=== PATIENT | male | born 1955 | race African-American/Black ===

== ENCOUNTER 2019-06-14 14:37 | Observation (INO) ==
[2019-06-14] MEDS ORDERED: DIPH/TET/ACEL PERT BOOSTER VACCINE 0.5 ML VIAL IM ONE (15:10)
[2019-06-14] MEDS ORDERED: ACETAMINOPHEN 325 MG TABLET PO PRN (15:59)
[2019-06-14] MEDS ORDERED: ONDANSETRON 4 MG/2 ML VIAL IV PRN (15:59)
[2019-06-15 07:35] VITALS: BP 145/59
[2019-06-15 08:07] LABS: Basophils % 0.4 % (0.0-0.8); Hematocrit 35.8 VOL% (42.0-52.0); Immature Granulocytes % 0.6 %; Immature Granulocytes Absolute 0.05 #; Lymphocytes # 0.8 10*3/uL (1.4-4.0); Lymphocytes % 8.9 % (21.2-54.2); Mean Corpuscular HGB Conc 33.5 GM/DL (32-36); Mean Corpuscular Volume 91.1 FL (87-102); Mean Platelet Volume 9.6 FL (9.6-12.0); Monocytes % 11.3 % (1.7-12.7); Neutrophils % 78.8 % (38.7-73.9); Platelet Count 401 T/CUMM (130-400); Red Blood Count 3.93 MC/CUMM (3.8-5.5); Red Cell Distribution Width 13.4 % (9.3-17.3)
[2019-06-15 08:31] LABS: Calcium 8.7 MG/DL (8.5-10.1); Osmolality,Calculated 267.4 MOS/KG (273-304)
== END 2019-06-15 10:00 ==
LOC: EDUNIT# → EDBD → N.ED 14:37 → N.EDINP 14:37 → N.3E 16:50
PROVIDERS: ADMIT Surgery; ATTEND Surgery

== ENCOUNTER 2020-04-11 02:28 | Observation (INO) ==
[2020-04-11] MEDS ORDERED: ASPIRIN 325 MG TABLET PO STA (03:13)
[2020-04-11] MEDS ORDERED: ONDANSETRON 4 MG/2 ML VIAL IV STA (03:13)
[2020-04-11 03:33] LABS: Basophils # 0.1 10*3/uL (0.0-0.2); Basophils % 1.7 % (0.0-0.8); Eosinophils # 0.2 10*3/uL (0.0-0.87); Eosinophils % 3.5 % (0.00-10.9); Hemoglobin 12.7 GM/DL (14.0-18.0); Immature Granulocytes % 0.2 %; Immature Granulocytes Absolute 0.01 #; Lymphocytes # 1.4 10*3/uL (1.4-4.0); Lymphocytes % 30.7 % (21.2-54.2); Mean Corpuscular HGB Conc 33.4 GM/DL (32-36); Mean Corpuscular Volume 91.6 FL (87-102); Mean Platelet Volume 9.2 FL (9.6-12.0); Monocytes % 13.9 % (1.7-12.7); Platelet Count 508 T/CUMM (130-400); Red Blood Count 4.15 MC/CUMM (3.8-5.5); Red Cell Distribution Width 12.9 % (9.3-17.3); White Blood Count 4.6 T/CUMM (4-12)
[2020-04-11 03:49] LABS: INR 1.1
[2020-04-11 03:54] LABS: Albumin 3.6 G/DL (3.4-5.0); Bilirubin,Total 0.6 MG/DL (0.2-1.0); Calcium 8.6 MG/DL (8.5-10.1); Osmolality,Calculated 275.7 MOS/KG (273-304); Potassium 3.9 MMOL/L (3.5-5.1); Total Protein 7.8 G/DL (6.4-8.3)
[2020-04-11 04:14] LABS: Bilirubin,Urine Negative (Negative); Blood, Urine Small mg/dL (Negative); Glucose,Urine (UA) Negative (Negative); Ketones,Urine Negative (Negative); Mucus,Urine Occasional /LPF (Occasional); Nitrite,Urine Negative (Negative); Protein,Urine 30 MG/DL; RBC,Urine 7 /HPF (0-4); Squamous Epithelial Cell,Urine Occasional /HPF (0-10); Urine Appearance CLEAR (Clear); Urine Color Yellow (Yellow); Urine Specific Gravity 1.015 (1.001-1.035); Urine Urobilinogen < 2.0 EU/DL (0.2-1.0); WBC,Urine 1 /HPF (0-6)
[2020-04-11] MEDS ORDERED: BISACODYL 5 MG TABLET PO PRN (05:49)
[2020-04-11] MEDS ORDERED: GLUCAGON 1 MG VIAL IM PRN (05:49)
[2020-04-11] MEDS ORDERED: DEXTROSE 50% 25 GM/50 ML VIAL IV PRN (05:49)
[2020-04-11] MEDS ORDERED: ALUMINUM/MAGNES/SIMETH MAX STR 30 ML UDCUP PO PRN (05:49)
[2020-04-11] MEDS ORDERED: ACETAMINOPHEN 325 MG TABLET PO PRN (05:49)
[2020-04-11] MEDS ORDERED: SIMETHICONE CHEW 125 MG TABLET PO PRN (05:49)
[2020-04-11] MEDS ORDERED: MORPHINE 4 MG/1 ML VIAL IV PRN (05:49)
[2020-04-11] MEDS ORDERED: ONDANSETRON 4 MG/2 ML VIAL IV PRN (05:49)
[2020-04-11] MEDS ORDERED: ALBUTEROL/IPRATROPIUM 3 ML NEB RESP TX PRN (05:49)
[2020-04-11] MEDS ORDERED: NITROGLYCERIN SL 0.4 MG TABLET SL PRN (05:52)
[2020-04-11] MEDS ORDERED: carvediloL 3.125 MG TABLET PO SCH (08:00)
[2020-04-11] MEDS ORDERED: ENOXAPARIN 40 MG/0.4 ML SYRINGE SUBCUT SCH (09:00)
[2020-04-11 09:54] LABS: Troponin I < 0.015 NG/ML (0.00-0.045)
[2020-04-11] MEDS: amLODIPine 10 MG TABLET PO SCH (10:36)
[2020-04-11] MEDS: PANTOPRAZOLE 40 MG TABLET PO SCH (10:36)
[2020-04-11] MEDS: LEVOTHYROXINE 88 MCG TABLET PO SCH (10:36)
[2020-04-11] MEDS: ASPIRIN CHEW 81 MG TABLET PO SCH (10:37)
[2020-04-11 10:40] LABS: Troponin I < 0.015 NG/ML (0.00-0.045)
[2020-04-11] MEDS ORDERED: ROSUVASTATIN 20 MG TABLET PO SCH (21:00)
[2020-04-12 07:08] LABS: Basophils # 0.1 10*3/uL (0.0-0.2); Basophils % 1.6 % (0.0-0.8); Eosinophils # 0.2 10*3/uL (0.0-0.87); Eosinophils % 2.9 % (0.00-10.9); Hematocrit 36.8 VOL% (42.0-52.0); Hemoglobin 12.3 GM/DL (14.0-18.0); Immature Granulocytes % 0.2 %; Immature Granulocytes Absolute 0.01 #; Lymphocytes # 1.4 10*3/uL (1.4-4.0); Lymphocytes % 27.8 % (21.2-54.2); Mean Corpuscular HGB Conc 33.4 GM/DL (32-36); Mean Corpuscular Volume 91.3 FL (87-102); Mean Platelet Volume 9.4 FL (9.6-12.0); Monocytes % 12.2 % (1.7-12.7); Neutrophils % 55.3 % (38.7-73.9); Platelet Count 504 T/CUMM (130-400); Red Blood Count 4.03 MC/CUMM (3.8-5.5); Red Cell Distribution Width 12.9 % (9.3-17.3); White Blood Count 5.2 T/CUMM (4-12)
[2020-04-12 07:29] LABS: Calcium 8.4 MG/DL (8.5-10.1); Osmolality,Calculated 281.3 MOS/KG (273-304); Potassium 3.8 MMOL/L (3.5-5.1)
[2020-04-12] MEDS: ASPIRIN CHEW 81 MG TABLET PO SCH (09:01)
[2020-04-12] MEDS: PANTOPRAZOLE 40 MG TABLET PO SCH (09:01)
[2020-04-12] MEDS: amLODIPine 10 MG TABLET PO SCH (09:02)
[2020-04-12] MEDS: LEVOTHYROXINE 88 MCG TABLET PO SCH (09:02)
[2020-04-12 10:27] VITALS: BP 126/64
== END 2020-04-12 11:42 | disposition home health service (06) ==
LOC: SUATTDRO → EDUNIT# → EDBD → N.EDINP 02:28 → N.ED 02:28 → N.TELEN 07:35
PROVIDERS: ADMIT Emergency Medicine; ATTEND Emergency Medicine

== ENCOUNTER 2020-07-04 05:45 | Observation (INO) ==
[2020-07-04 06:25] LABS: Basophils # 0.1 10*3/uL (0.0-0.2); Basophils % 1.9 % (0.0-0.8); Eosinophils # 0.2 10*3/uL (0.0-0.87); Eosinophils % 2.8 % (0.00-10.9); Hematocrit 39.3 VOL% (42.0-52.0); Hemoglobin 13.2 GM/DL (14.0-18.0); Immature Granulocytes % 0.2 %; Immature Granulocytes Absolute 0.01 #; Lymphocytes # 2.6 10*3/uL (1.4-4.0); Lymphocytes % 41.3 % (21.2-54.2); Mean Corpuscular HGB Conc 33.6 GM/DL (32-36); Mean Corpuscular Volume 92.3 FL (87-102); Mean Platelet Volume 10.1 FL (9.6-12.0); Monocytes % 13.1 % (1.7-12.7); Neutrophils % 40.7 % (38.7-73.9); Platelet Count 308 T/CUMM (130-400); Red Blood Count 4.26 MC/CUMM (3.8-5.5); Red Cell Distribution Width 13.7 % (9.3-17.3); White Blood Count 6.2 T/CUMM (4-12)
[2020-07-04 07:02] LABS: Albumin 3.9 G/DL (3.4-5.0); Bilirubin,Total 0.5 MG/DL (0.2-1.0); Calcium 8.5 MG/DL (8.5-10.1); Osmolality,Calculated 283.5 MOS/KG (273-304); Potassium 5.8 MMOL/L (3.5-5.1); Total Protein 7.4 G/DL (6.4-8.2)
[2020-07-04] MEDS ORDERED: ALBUTEROL 2.5 MG/3 ML NEB RESP TX STA (09:06)
[2020-07-04] MEDS ORDERED: SODIUM CHLORIDE 0.9% 1,000 ML IV STA (09:40)
[2020-07-04] MEDS ORDERED: cefTRIAXone 1,000 MG in SODIUM CHLORIDE 0.9% 100 ML IV STA (09:41)
[2020-07-04] MEDS ORDERED: GLUCAGON 1 MG VIAL IM PRN (10:24)
[2020-07-04] MEDS ORDERED: ACETAMINOPHEN 325 MG TABLET PO PRN (10:24)
[2020-07-04] MEDS ORDERED: hydrALAZINE 20 MG/1 ML VIAL IV PRN (10:24)
[2020-07-04] MEDS ORDERED: ONDANSETRON 4 MG/2 ML VIAL IV PRN (10:24)
[2020-07-04] MEDS ORDERED: DOCUSATE SODIUM 100 MG CAPSULE PO PRN (10:24)
[2020-07-04] MEDS ORDERED: ALBUTEROL/IPRATROPIUM 3 ML NEB RESP TX PRN (10:24)
[2020-07-04] MEDS ORDERED: DEXTROSE 50% 25 GM/50 ML VIAL IV PRN (10:24)
[2020-07-04] MEDS: ENOXAPARIN 40 MG/0.4 ML SYRINGE SUBCUT SCH (14:01)
[2020-07-04] MEDS: SODIUM CHLORIDE 0.9% 1,000 ML IV SCH ×2 (14:22→22:43)
[2020-07-04 23:28] LABS: Bacteria,Urine Occasional /HPF (Few); Bilirubin,Urine Negative (Negative); Blood, Urine Negative (Negative); Glucose,Urine (UA) Negative (Negative); Hyaline Casts,Urine 11 /LPF (0-3); Ketones,Urine Negative (Negative); Mucus,Urine Occasional /LPF (Occasional); Nitrite,Urine Negative (Negative); Protein,Urine Negative; RBC,Urine 1 /HPF (0-4); Sperm,Urine Occasional /HPF (Negative); Urine Appearance CLEAR (Clear); Urine Color Yellow (Yellow); Urine Specific Gravity 1.015 (1.001-1.035); Urine Urobilinogen < 2.0 EU/DL (0.2-1.0)
[2020-07-05] MEDS: SODIUM CHLORIDE 0.9% 1,000 ML IV SCH ×2 (02:58→06:15)
[2020-07-05 06:11] LABS: Basophils # 0.1 10*3/uL (0.0-0.2); Basophils % 2.1 % (0.0-0.8); Eosinophils # 0.2 10*3/uL (0.0-0.87); Eosinophils % 3.2 % (0.00-10.9); Hematocrit 35.5 VOL% (42.0-52.0); Hemoglobin 11.6 GM/DL (14.0-18.0); Immature Granulocytes % 0.2 %; Immature Granulocytes Absolute 0.01 #; Lymphocytes # 1.5 10*3/uL (1.4-4.0); Lymphocytes % 31.7 % (21.2-54.2); Mean Corpuscular HGB Conc 32.7 GM/DL (32-36); Mean Corpuscular Volume 92.4 FL (87-102); Mean Platelet Volume 9.4 FL (9.6-12.0); Monocytes % 15.3 % (1.7-12.7); Neutrophils % 47.5 % (38.7-73.9); Platelet Count 474 T/CUMM (130-400); Red Blood Count 3.84 MC/CUMM (3.8-5.5); Red Cell Distribution Width 13.7 % (9.3-17.3); White Blood Count 4.8 T/CUMM (4-12)
[2020-07-05 06:51] LABS: Osmolality,Calculated 284.4 MOS/KG (273-304); Potassium 4.4 MMOL/L (3.5-5.1); Risk Ratio 2.69; Thyroid Stimulating Hormone 17.8 uIU/ml (0.358-3.74); VLDL CHOLESTEROL 19.8 MG/DL
[2020-07-05] MEDS: PANTOPRAZOLE 40 MG TABLET PO SCH (09:15)
[2020-07-05] MEDS: ENOXAPARIN 40 MG/0.4 ML SYRINGE SUBCUT SCH (09:50)
[2020-07-05] MEDS: SODIUM BICARB INJ 150 MEQ in SODIUM CHLORIDE 0.45% 1,000 ML IV SCH (14:56)
[2020-07-06] MEDS: SODIUM BICARB INJ 150 MEQ in SODIUM CHLORIDE 0.45% 1,000 ML IV SCH (00:22)
[2020-07-06 05:50] LABS: Basophils # 0.1 10*3/uL (0.0-0.2); Eosinophils # 0.3 10*3/uL (0.0-0.87); Eosinophils % 6.8 % (0.00-10.9); Hemoglobin 10.5 GM/DL (14.0-18.0); Immature Granulocytes % 0.5 %; Immature Granulocytes Absolute 0.02 #; Lymphocytes # 1.5 10*3/uL (1.4-4.0); Lymphocytes % 34.1 % (21.2-54.2); Mean Corpuscular HGB Conc 32.8 GM/DL (32-36); Mean Platelet Volume 9.4 FL (9.6-12.0); Monocytes % 13.2 % (1.7-12.7); Neutrophils % 43.4 % (38.7-73.9); Platelet Count 482 T/CUMM (130-400); Red Blood Count 3.48 MC/CUMM (3.8-5.5); Red Cell Distribution Width 13.6 % (9.3-17.3); White Blood Count 4.4 T/CUMM (4-12)
[2020-07-06 05:54] LABS: Calcium 8.3 MG/DL (8.5-10.1); Osmolality,Calculated 288.8 MOS/KG (273-304); Potassium 3.6 MMOL/L (3.5-5.1)
[2020-07-06 05:55] LABS: Potassium 3.6 MMOL/L (3.5-5.1)
[2020-07-06] MEDS: PANTOPRAZOLE 40 MG TABLET PO SCH (08:39)
[2020-07-06] MEDS: ENOXAPARIN 40 MG/0.4 ML SYRINGE SUBCUT SCH (10:11)
[2020-07-06] MEDS ORDERED: ERGOCALCIFEROL 50,000 UNIT CAPSULE PO SCH (15:30)
[2020-07-06] MEDS: DEXTROSE 5% NACL 0.45% 1,000 ML IV SCH (17:35)
[2020-07-06] MEDS: CYANOCOBALAMIN 1000 MCG/1 ML VIAL IM SCH (17:36)
[2020-07-07] MEDS: DEXTROSE 5% NACL 0.45% 1,000 ML IV SCH ×2 (05:48→19:50)
[2020-07-07 06:39] LABS: Calcium 8.4 MG/DL (8.5-10.1); Osmolality,Calculated 285.1 MOS/KG (273-304); Potassium 3.3 MMOL/L (3.5-5.1)
[2020-07-07] MEDS: SODIUM BICARB INJ 150 MEQ in SODIUM CHLORIDE 0.45% 1,000 ML IV SCH (08:57)
[2020-07-07] MEDS ORDERED: LEVOTHYROXINE 100 MCG TABLET PO SCH (09:00)
[2020-07-07] MEDS: LEVOTHYROXINE 112 MCG TABLET PO SCH (09:24)
[2020-07-07] MEDS: CYANOCOBALAMIN 1000 MCG/1 ML VIAL IM SCH (09:24)
[2020-07-07] MEDS: PANTOPRAZOLE 40 MG TABLET PO SCH (09:24)
[2020-07-07] MEDS: ENOXAPARIN 40 MG/0.4 ML SYRINGE SUBCUT SCH (09:30)
[2020-07-07 09:43] LABS: Total Protein 6.3 G/DL (6.4-8.2)
[2020-07-07 11:06] LABS: INR 1.1; PT Patient Result 12.2 SECS (10.5-12.0)
[2020-07-07] MEDS: POTASSIUM CHLORIDE 20 MEQ TABLET PO PRN ×3 (12:55→16:40)
[2020-07-07] MEDS: SODIUM CHLORIDE 0.9% 1,000 ML IV SCH (17:06)
[2020-07-08 06:28] LABS: Total Protein (Chem) 6.3 G/DL (6.4-8.3)
[2020-07-08 06:37] LABS: Calcium 8.2 MG/DL (8.5-10.1); Osmolality,Calculated 280.3 MOS/KG (273-304)
[2020-07-08] MEDS: CYANOCOBALAMIN 1000 MCG/1 ML VIAL IM SCH (08:34)
[2020-07-08] MEDS: LEVOTHYROXINE 112 MCG TABLET PO SCH (08:34)
[2020-07-08] MEDS: PANTOPRAZOLE 40 MG TABLET PO SCH (08:34)
[2020-07-08] MEDS: DEXTROSE 5% NACL 0.45% 1,000 ML IV SCH (08:38)
[2020-07-08 08:43] LABS: Albumin (SPE) 3.7 G/DL (3.2-5.3); Albumin (SPE) Rel % 59.2 %; Alpha 1 (SPE) 0.2 G/DL (0.1-0.4); Alpha 1 (SPE) Rel % 3.3 %; Alpha 2 (SPE) 0.6 G/DL (0.4-1.0); Alpha 2 (SPE) Rel % 9.3 %; Beta (SPE) 0.4 G/DL (0.5-1.1); Gamma (SPE) Rel % 21.2 %
[2020-07-08 08:45] LABS: Gamma (SPE) 1.3 G/DL (0.7-1.7)
[2020-07-08] MEDS: ENOXAPARIN 40 MG/0.4 ML SYRINGE SUBCUT SCH (09:40)
[2020-07-08 11:14] LABS: Immuno Free Light Chain Kappa 3.71 MG/DL (0.33-1.94); Immuno Free Light Chain Lambda 6.67 MG/DL (0.57-2.63); Immuno Free Light Chain Ratio 0.56 MG/DL (0.26-1.65)
[2020-07-08 11:49] VITALS: BP 152/85
== END 2020-07-08 14:50 | disposition home or self-care (01) ==
LOC: EDBD → EDUNIT# → N.ED 05:45 → N.EDINP 05:45 → SUATTDRO 10:24 → N.5E 11:05
PROVIDERS: ADMIT Internal Medicine; ATTEND Internal Medicine

== ENCOUNTER 2020-07-21 23:48 | Inpatient (IN) ==
[2020-07-22] MEDS ORDERED: DILTIAZEM 50 MG/10 ML VIAL IV STA (00:17)
[2020-07-22] MEDS ORDERED: SODIUM CHLORIDE 0.9% 1,000 ML IV STA (00:17)
[2020-07-22] MEDS ORDERED: DILTIAZEM INJ 100 MG in SODIUM CHLORIDE 0.9% 100 ML IV SCH (00:30)
[2020-07-22 01:11] LABS: Basophils # 0.2 10*3/uL (0.0-0.2); Basophils % 2.3 % (0.0-0.8); Eosinophils # 0.2 10*3/uL (0.0-0.87); Eosinophils % 2.3 % (0.00-10.9); Hematocrit 41.6 VOL% (42.0-52.0); Hemoglobin 13.8 GM/DL (14.0-18.0); Immature Granulocytes % 0.3 %; Immature Granulocytes Absolute 0.02 #; Lymphocytes # 2.5 10*3/uL (1.4-4.0); Lymphocytes % 31.2 % (21.2-54.2); Mean Corpuscular HGB Conc 33.2 GM/DL (32-36); Mean Corpuscular Volume 91.2 FL (87-102); Mean Platelet Volume 9.5 FL (9.6-12.0); Neutrophils % 48.9 % (38.7-73.9); Platelet Count 596 T/CUMM (130-400); Red Blood Count 4.56 MC/CUMM (3.8-5.5); Red Cell Distribution Width 13.2 % (9.3-17.3); White Blood Count 7.9 T/CUMM (4-12)
[2020-07-22 01:36] LABS: Alanine Aminotransferase 15 U/L (16-61); Albumin 3.8 G/DL (3.4-5.0); Alkaline Phosphatase 77 U/L (45-117); Aspartate Amino Transferase 21 U/L (0-37); Blood Urea Nitrogen 39 MG/DL (7-18); Carbon Dioxide 27 MMOL/L (21-32); Estimated Glom Filtration Rate 47 ML/MIN; Glucose 107 MG/DL (74-106); Osmolality,Calculated 287.4 MOS/KG (273-304); Potassium 3.9 MMOL/L (3.5-5.1); Sodium 140 MMOL/L (136-145); Total Protein 8.5 G/DL (6.4-8.2)
[2020-07-22 01:41] LABS: Free T4 (Free Thyroxine) 0.91 NG/DL (0.76-1.46); Thyroid Stimulating Hormone 15.8 uIU/ml (0.358-3.74)
[2020-07-22 01:59] LABS: Barbiturates Screen,Urine Negative (Negative); Benzodiazepines Screen,Urine Negative (Negative); Cannabinoid Screen,Urine Negative (Negative); Opiate Screen,Urine Negative (Negative); Phencyclidine Screen,Urine Negative (Negative)
[2020-07-22 02:04] LABS: Bacteria,Urine Few /HPF (Few); Bilirubin,Urine Negative (Negative); Blood, Urine Negative (Negative); Glucose,Urine (UA) Negative (Negative); Hyaline Casts,Urine 356 /LPF (0-3); Ketones,Urine Negative (Negative); Mucus,Urine Few /LPF (Occasional); Nitrite,Urine Negative (Negative); Protein,Urine 30 MG/DL; Urine Appearance Slightly Hazy (Clear); Urine Color Yellow (Yellow); Urine Specific Gravity 1.011 (1.001-1.035)
[2020-07-22 02:15] LABS: INR 1.1; PT Patient Result 12.3 SECS (10.5-12.0)
[2020-07-22] MEDS ORDERED: GLUCAGON 1 MG VIAL IM PRN (02:53)
[2020-07-22] MEDS ORDERED: DEXTROSE 50% 25 GM/50 ML VIAL IV PRN (02:53)
[2020-07-22] MEDS ORDERED: DOCUSATE SODIUM 100 MG CAPSULE PO PRN (02:54)
[2020-07-22] MEDS ORDERED: ONDANSETRON 4 MG/2 ML VIAL IV PRN (02:54)
[2020-07-22] MEDS ORDERED: ACETAMINOPHEN 325 MG TABLET PO PRN (02:54)
[2020-07-22 03:12] LABS: Platelet Estimate Increased
[2020-07-22] MEDS: SODIUM CHLORIDE 0.9% 1,000 ML IV SCH ×3 (03:12→20:20)
[2020-07-22] MEDS ORDERED: METOPROLOL SUCCINATE XL 25 MG TABLET PO SCH (09:00)
[2020-07-22] MEDS: ASPIRIN CHEW 81 MG TABLET PO SCH (09:14)
[2020-07-22] MEDS: DILTIAZEM 30 MG TABLET PO SCH ×4 (10:41→22:45)
[2020-07-22] MEDS ORDERED: ROSUVASTATIN 10 MG TABLET PO SCH (21:00)
[2020-07-23] MEDS: SODIUM CHLORIDE 0.9% 1,000 ML IV SCH ×3 (04:09→21:24)
[2020-07-23 05:02] LABS: Basophils # 0.2 10*3/uL (0.0-0.2); Basophils % 2.9 % (0.0-0.8); Eosinophils # 0.5 10*3/uL (0.0-0.87); Eosinophils % 9.3 % (0.00-10.9); Hematocrit 32.6 VOL% (42.0-52.0); Immature Granulocytes % 0.4 %; Immature Granulocytes Absolute 0.02 #; Lymphocytes # 2.1 10*3/uL (1.4-4.0); Lymphocytes % 38.1 % (21.2-54.2); Mean Corpuscular HGB Conc 33.1 GM/DL (32-36); Mean Corpuscular Volume 92.1 FL (87-102); Mean Platelet Volume 9.4 FL (9.6-12.0); Monocytes % 12.7 % (1.7-12.7); Neutrophils % 36.6 % (38.7-73.9); Red Cell Distribution Width 13.2 % (9.3-17.3)
[2020-07-23 05:03] LABS: Calcium 7.7 MG/DL (8.5-10.1); Potassium 3.4 MMOL/L (3.5-5.1)
[2020-07-23 05:04] LABS: Hemoglobin 10.8 GM/DL (14.0-18.0); Red Blood Count 3.54 MC/CUMM (3.8-5.5); White Blood Count 5.5 T/CUMM (4-12)
[2020-07-23 05:05] LABS: Platelet Count 464 T/CUMM (130-400)
[2020-07-23 05:07] LABS: Risk Ratio 2.3; VLDL CHOLESTEROL 18.6 MG/DL
[2020-07-23 05:17] LABS: Eosinophils 14 % (0-10); Lymphocytes 25 % (20-55); Platelet Estimate Increased; Segmented Neutrophils 46 % (50-85); Total Cells Counted 100
[2020-07-23] MEDS: ASPIRIN CHEW 81 MG TABLET PO SCH (08:31)
[2020-07-23] MEDS: LEVOTHYROXINE 100 MCG TABLET PO SCH (08:32)
[2020-07-23] MEDS ORDERED: POTASSIUM CHLORIDE 20 MEQ TABLET PO ONE (09:19)
[2020-07-23] MEDS: ASCORBIC ACID 500 MG TABLET PO SCH ×2 (10:30→20:40)
[2020-07-23] MEDS: METOPROLOL TARTRATE 25 MG TABLET PO SCH (13:50)
[2020-07-24 05:18] LABS: Basophils # 0.2 10*3/uL (0.0-0.2); Basophils % 2.7 % (0.0-0.8); Eosinophils # 0.6 10*3/uL (0.0-0.87); Hemoglobin 9.6 GM/DL (14.0-18.0); Immature Granulocytes % 0.2 %; Immature Granulocytes Absolute 0.01 #; Lymphocytes # 1.9 10*3/uL (1.4-4.0); Lymphocytes % 31.4 % (21.2-54.2); Mean Corpuscular HGB Conc 33.1 GM/DL (32-36); Mean Corpuscular Volume 92.7 FL (87-102); Mean Platelet Volume 9.4 FL (9.6-12.0); Monocytes % 12.8 % (1.7-12.7); Neutrophils % 42.9 % (38.7-73.9); Platelet Count 455 T/CUMM (130-400); Red Blood Count 3.13 MC/CUMM (3.8-5.5); Red Cell Distribution Width 13.3 % (9.3-17.3)
[2020-07-24 05:32] LABS: Calcium 7.8 MG/DL (8.5-10.1); Osmolality,Calculated 289.8 MOS/KG (273-304); Potassium 3.5 MMOL/L (3.5-5.1)
[2020-07-24 05:47] LABS: Anisocytosis 1+; Eosinophils 13 % (0-10); Lymphocytes 31 % (20-55); Platelet Estimate Normal; Segmented Neutrophils 42 % (50-85); Total Cells Counted 100
[2020-07-24 05:48] LABS: Burr Cells Few; Macrocytosis Slight
[2020-07-24] MEDS: SODIUM CHLORIDE 0.9% 1,000 ML IV SCH ×4 (06:05→20:44)
[2020-07-24] MEDS: METOPROLOL TARTRATE 25 MG TABLET PO SCH (08:25)
[2020-07-24] MEDS: ASPIRIN CHEW 81 MG TABLET PO SCH (08:25)
[2020-07-24] MEDS: ASCORBIC ACID 500 MG TABLET PO SCH ×2 (08:25→20:44)
[2020-07-24] MEDS: LEVOTHYROXINE 100 MCG TABLET PO SCH (08:26)
[2020-07-25 05:13] LABS: Basophils # 0.2 10*3/uL (0.0-0.2); Basophils % 2.9 % (0.0-0.8); Eosinophils # 0.5 10*3/uL (0.0-0.87); Eosinophils % 9.9 % (0.00-10.9); Hematocrit 33.2 VOL% (42.0-52.0); Hemoglobin 10.8 GM/DL (14.0-18.0); Immature Granulocytes % 0.2 %; Immature Granulocytes Absolute 0.01 #; Lymphocytes # 1.8 10*3/uL (1.4-4.0); Lymphocytes % 34.5 % (21.2-54.2); Mean Corpuscular HGB Conc 32.5 GM/DL (32-36); Mean Corpuscular Volume 92.5 FL (87-102); Mean Platelet Volume 9.6 FL (9.6-12.0); Monocytes % 11.8 % (1.7-12.7); Neutrophils % 40.7 % (38.7-73.9); Platelet Count 433 T/CUMM (130-400); Red Blood Count 3.59 MC/CUMM (3.8-5.5); Red Cell Distribution Width 13.2 % (9.3-17.3); White Blood Count 5.3 T/CUMM (4-12)
[2020-07-25 05:53] LABS: Osmolality,Calculated 290.7 MOS/KG (273-304); Potassium 3.4 MMOL/L (3.5-5.1)
[2020-07-25 06:42] LABS: Eosinophils 14 % (0-10); Lymphocytes 26 % (20-55); Microcytosis Slight; Platelet Estimate Increased; Segmented Neutrophils 46 % (50-85); Total Cells Counted 100
[2020-07-25] MEDS: ASCORBIC ACID 500 MG TABLET PO SCH (08:13)
[2020-07-25] MEDS: LEVOTHYROXINE 100 MCG TABLET PO SCH (08:13)
[2020-07-25] MEDS: ASPIRIN CHEW 81 MG TABLET PO SCH (08:13)
[2020-07-25] MEDS: METOPROLOL TARTRATE 25 MG TABLET PO SCH (08:13)
[2020-07-25] MEDS: SODIUM CHLORIDE 0.9% 1,000 ML IV SCH (08:53)
[2020-07-25] MEDS ORDERED: POTASSIUM CHLORIDE 20 MEQ TABLET PO ONE (08:54)
[2020-07-25 11:15] VITALS: BP 144/75
== END 2020-07-25 13:03 | disposition swing bed (61) | DRG 309 ==
LOC: EDBD → EDUNIT# → N.ED 23:48 → N.EDINP 07-22 02:50 → N.CC 07-22 04:20 → N.TELES 07-22 17:23
PROVIDERS: ADMIT Internal Medicine; ATTEND Internal Medicine

== ENCOUNTER 2020-10-09 09:51 | Inpatient (IN) ==
[2020-10-09 11:48] LABS: Basophils # 0.1 10*3/uL (0.0-0.2); Basophils % 1.8 % (0.0-0.8); Eosinophils # 0.1 10*3/uL (0.0-0.87); Hemoglobin 9.6 GM/DL (14.0-18.0); Immature Granulocytes % 0.3 %; Immature Granulocytes Absolute 0.01 #; Lymphocytes # 1.3 10*3/uL (1.4-4.0); Lymphocytes % 34.2 % (21.2-54.2); Mean Corpuscular HGB Conc 33.1 GM/DL (32-36); Mean Platelet Volume 10.4 FL (9.6-12.0); Neutrophils % 48.7 % (38.7-73.9); Platelet Count 219 T/CUMM (130-400); Red Blood Count 3.41 MC/CUMM (3.8-5.5); Red Cell Distribution Width 14.7 % (9.3-17.3); White Blood Count 3.9 T/CUMM (4-12)
[2020-10-09 12:17] LABS: Albumin 3.4 G/DL (3.4-5.0); Bilirubin,Total 0.5 MG/DL (0.20-1.00); Calcium 6.9 MG/DL (8.5-10.1); Osmolality,Calculated 291.4 MOS/KG (273-304); Potassium 3.9 MMOL/L (3.5-5.1); Total Protein 7.2 G/DL (6.4-8.2)
[2020-10-09] MEDS ORDERED: GLUCAGON 1 MG VIAL IM PRN (13:08)
[2020-10-09] MEDS ORDERED: ACETAMINOPHEN 325 MG TABLET PO PRN (13:16)
[2020-10-09] MEDS ORDERED: DOCUSATE SODIUM 100 MG CAPSULE PO PRN (13:16)
[2020-10-09] MEDS: SODIUM CHLORIDE 0.45% 1,000 ML IV SCH (15:41)
[2020-10-09] MEDS: HEPARIN 5,000 UNIT/1 ML VIAL SUBCUT SCH (17:23)
[2020-10-10] MEDS: HEPARIN 5,000 UNIT/1 ML VIAL SUBCUT SCH ×2 (01:52→12:57)
[2020-10-10] MEDS: SODIUM CHLORIDE 0.45% 1,000 ML IV SCH ×3 (02:15→19:54)
[2020-10-10 04:55] LABS: Basophils # 0.1 10*3/uL (0.0-0.2); Basophils % 2.6 % (0.0-0.8); Eosinophils # 0.1 10*3/uL (0.0-0.87); Eosinophils % 2.9 % (0.00-10.9); Hematocrit 24.2 VOL% (42.0-52.0); Hemoglobin 8.1 GM/DL (14.0-18.0); Immature Granulocytes % 0.3 %; Immature Granulocytes Absolute 0.01 #; Lymphocytes # 1.4 10*3/uL (1.4-4.0); Lymphocytes % 41.5 % (21.2-54.2); Mean Corpuscular HGB Conc 33.5 GM/DL (32-36); Mean Corpuscular Volume 85.8 FL (87-102); Mean Platelet Volume 10.4 FL (9.6-12.0); Monocytes % 17.8 % (1.7-12.7); Neutrophils % 34.9 % (38.7-73.9); Platelet Count 238 T/CUMM (130-400); Red Blood Count 2.82 MC/CUMM (3.8-5.5); Red Cell Distribution Width 14.6 % (9.3-17.3); White Blood Count 3.4 T/CUMM (4-12)
[2020-10-10 05:08] LABS: Calcium 6.5 MG/DL (8.5-10.1); Osmolality,Calculated 291.4 MOS/KG (273-304); Potassium 3.8 MMOL/L (3.5-5.1)
[2020-10-10 05:20] LABS: Eosinophils 3 % (0-10); Lymphocytes 43 % (20-55); Platelet Estimate Normal; Segmented Neutrophils 38 % (50-85); Total Cells Counted 100
[2020-10-10] MEDS: GABAPENTIN 100 MG CAPSULE PO SCH ×2 (14:07→20:29)
[2020-10-10] MEDS: traMADol 50 MG TABLET PO PRN (14:07)
[2020-10-10] MEDS ORDERED: TUBERCULIN SKIN TEST 0.1 ML SYRINGE INTRADERM ONE (15:34)
[2020-10-11] MEDS: HEPARIN 5,000 UNIT/1 ML VIAL SUBCUT SCH ×2 (01:03→13:51)
[2020-10-11] MEDS: SODIUM CHLORIDE 0.45% 1,000 ML IV SCH ×2 (04:26→09:19)
[2020-10-11] MEDS: LEVOTHYROXINE 112 MCG TABLET PO SCH (06:51)
[2020-10-11 07:02] LABS: Basophils # 0.1 10*3/uL (0.0-0.2); Basophils % 2.8 % (0.0-0.8); Eosinophils # 0.2 10*3/uL (0.0-0.87); Eosinophils % 6.1 % (0.00-10.9); Hematocrit 26.4 VOL% (42.0-52.0); Hemoglobin 8.7 GM/DL (14.0-18.0); Immature Granulocytes % 0.3 %; Immature Granulocytes Absolute 0.01 #; Lymphocytes # 1.5 10*3/uL (1.4-4.0); Lymphocytes % 44.3 % (21.2-54.2); Mean Corpuscular Volume 86.8 FL (87-102); Mean Platelet Volume 10.5 FL (9.6-12.0); Monocytes % 16.2 % (1.7-12.7); Neutrophils % 30.3 % (38.7-73.9); Platelet Count 229 T/CUMM (130-400); Red Blood Count 3.04 MC/CUMM (3.8-5.5); Red Cell Distribution Width 14.7 % (9.3-17.3); White Blood Count 3.3 T/CUMM (4-12)
[2020-10-11 07:25] LABS: Eosinophils 4 % (0-10); Hypochromasia 1+; Lymphocytes 38 % (20-55); Microcytosis 1+; Platelet Estimate Adequate; Segmented Neutrophils 45 % (50-85); Total Cells Counted 100
[2020-10-11 07:32] LABS: Calcium 6.3 MG/DL (8.5-10.1); Osmolality,Calculated 283.8 MOS/KG (273-304); Potassium 3.9 MMOL/L (3.5-5.1)
[2020-10-11] MEDS: GABAPENTIN 100 MG CAPSULE PO SCH ×2 (09:18→20:59)
[2020-10-11] MEDS: MULTIVITAMIN (CENTRUM) TABLET PO SCH (09:18)
[2020-10-11] MEDS: ASPIRIN CHEW 81 MG TABLET PO SCH (09:18)
[2020-10-11] MEDS ORDERED: SODIUM BICARB INJ 150 MEQ in DEXTROSE 5% 850 ML IV SCH (09:30)
[2020-10-11] MEDS: SODIUM BICARB INJ 150 MEQ in DEXTROSE 5% 1,000 ML IV SCH ×2 (10:34→23:29)
[2020-10-12] MEDS: HEPARIN 5,000 UNIT/1 ML VIAL SUBCUT SCH ×2 (01:18→13:14)
[2020-10-12 06:03] LABS: Basophils # 0.1 10*3/uL (0.0-0.2); Basophils % 1.6 % (0.0-0.8); Eosinophils # 0.2 10*3/uL (0.0-0.87); Eosinophils % 3.8 % (0.00-10.9); Hemoglobin 8.8 GM/DL (14.0-18.0); Immature Granulocytes % 0.2 %; Immature Granulocytes Absolute 0.01 #; Lymphocytes # 1.1 10*3/uL (1.4-4.0); Lymphocytes % 21.9 % (21.2-54.2); Mean Corpuscular HGB Conc 33.8 GM/DL (32-36); Mean Corpuscular Volume 85.5 FL (87-102); Mean Platelet Volume 10.3 FL (9.6-12.0); Monocytes % 13.5 % (1.7-12.7); Platelet Count 229 T/CUMM (130-400); Red Blood Count 3.04 MC/CUMM (3.8-5.5); Red Cell Distribution Width 14.5 % (9.3-17.3)
[2020-10-12 06:40] LABS: Calcium 6.2 MG/DL (8.5-10.1); Osmolality,Calculated 290.7 MOS/KG (273-304); Potassium 3.9 MMOL/L (3.5-5.1)
[2020-10-12] MEDS: LEVOTHYROXINE 112 MCG TABLET PO SCH (07:00)
[2020-10-12] MEDS: traMADol 50 MG TABLET PO PRN (09:08)
[2020-10-12] MEDS: GABAPENTIN 100 MG CAPSULE PO SCH ×2 (09:08→20:25)
[2020-10-12] MEDS: ASPIRIN CHEW 81 MG TABLET PO SCH (09:08)
[2020-10-12] MEDS: MULTIVITAMIN (CENTRUM) TABLET PO SCH (09:08)
[2020-10-12] MEDS: SODIUM BICARB INJ 150 MEQ in DEXTROSE 5% 1,000 ML IV SCH (13:10)
[2020-10-13] MEDS: HEPARIN 5,000 UNIT/1 ML VIAL SUBCUT SCH ×2 (02:44→17:41)
[2020-10-13 05:55] LABS: Osmolality,Calculated 282.1 MOS/KG (273-304); Potassium 3.8 MMOL/L (3.5-5.1)
[2020-10-13 05:56] LABS: Prostate Specific Antigen Diag 0.06 NG/ML (0-3.60)
[2020-10-13 06:17] LABS: Alanine Aminotransferase < 6 U/L (16-61); Albumin 2.3 G/DL (3.4-5.0); Alkaline Phosphatase 59 U/L (45-117); Aspartate Amino Transferase 13 U/L (0-37); Blood Urea Nitrogen 55 MG/DL (7-18); Calcium 5.9 MG/DL (8.5-10.1); Carbon Dioxide 19 MMOL/L (21-32); Glucose 82 MG/DL (74-106); Osmolality,Calculated 283.1 MOS/KG (273-304); Potassium 3.8 MMOL/L (3.5-5.1); Sodium 135 MMOL/L (136-145); Total Protein 5.9 G/DL (6.4-8.2)
[2020-10-13 06:26] LABS: Estimated Glom Filtration Rate 24 ML/MIN
[2020-10-13 06:42] LABS: Basophils # 0.1 10*3/uL (0.0-0.2); Basophils % 1.4 % (0.0-0.8); Eosinophils # 0.2 10*3/uL (0.0-0.87); Eosinophils % 4.8 % (0.00-10.9); Hematocrit 24.7 VOL% (42.0-52.0); Hemoglobin 8.3 GM/DL (14.0-18.0); Immature Granulocytes % 0.2 %; Immature Granulocytes Absolute 0.01 #; Lymphocytes # 1.3 10*3/uL (1.4-4.0); Mean Corpuscular HGB Conc 33.6 GM/DL (32-36); Mean Corpuscular Volume 83.7 FL (87-102); Mean Platelet Volume 10.6 FL (9.6-12.0); Monocytes % 17.3 % (1.7-12.7); Neutrophils % 44.3 % (38.7-73.9); Platelet Count 207 T/CUMM (130-400); Red Blood Count 2.95 MC/CUMM (3.8-5.5); Red Cell Distribution Width 14.6 % (9.3-17.3); White Blood Count 4.2 T/CUMM (4-12)
[2020-10-13 07:11] LABS: Eosinophils 4 % (0-10); Lymphocytes 36 % (20-55); Platelet Estimate Normal; Segmented Neutrophils 52 % (50-85); Total Cells Counted 100
[2020-10-13 07:12] LABS: Hypochromasia 1+
[2020-10-13] MEDS: LEVOTHYROXINE 112 MCG TABLET PO SCH (07:29)
[2020-10-13 10:43] LABS: INR 1.2; PT Patient Result 12.8 SECS (10.5-12.0)
[2020-10-13] MEDS: GABAPENTIN 100 MG CAPSULE PO SCH ×2 (11:20→20:53)
[2020-10-13] MEDS: MULTIVITAMIN (CENTRUM) TABLET PO SCH (11:20)
[2020-10-13] MEDS: ASPIRIN CHEW 81 MG TABLET PO SCH ×2 (11:20→11:29)
[2020-10-13] MEDS: SODIUM BICARB INJ 150 MEQ in DEXTROSE 5% 1,000 ML IV SCH ×2 (13:19→17:41)
[2020-10-13 16:22] LABS: Lymphocytes,Pleural Fluid 38 %; Monocytes,Pleural Fluid 3 %; Neutrophils,Pleural Fluid 59 %; RBC,Pleural Fluid 304 T/CUMM
[2020-10-13] MEDS: MIDODRINE 5 MG TABLET PO SCH ×2 (16:27→20:51)
[2020-10-13 16:40] LABS: Amylase,Body Fluid 22 U/L; Glucose,Pleural Fluid 98 MG/DL; LDH,Body Fluid 72 U/L; Total Protein,Body Fluid 2.9 G/DL; Triglycerides,Body Fluid 18 MG/DL
[2020-10-13] MEDS: CALCIUM (CARBONATE) 500 MG TABLET PO SCH (20:52)
[2020-10-14] MEDS: HEPARIN 5,000 UNIT/1 ML VIAL SUBCUT SCH ×2 (00:44→16:33)
[2020-10-14 05:07] LABS: Basophils # 0.1 10*3/uL (0.0-0.2); Basophils % 1.8 % (0.0-0.8); Eosinophils # 0.2 10*3/uL (0.0-0.87); Eosinophils % 4.2 % (0.00-10.9); Hematocrit 21.7 VOL% (42.0-52.0); Hemoglobin 7.1 GM/DL (14.0-18.0); Immature Granulocytes % 0.4 %; Immature Granulocytes Absolute 0.02 #; Lymphocytes # 1.4 10*3/uL (1.4-4.0); Lymphocytes % 26.6 % (21.2-54.2); Mean Corpuscular HGB Conc 32.7 GM/DL (32-36); Mean Corpuscular Volume 84.8 FL (87-102); Mean Platelet Volume 10.7 FL (9.6-12.0); Monocytes % 16.8 % (1.7-12.7); Neutrophils % 50.2 % (38.7-73.9); Platelet Count 215 T/CUMM (130-400); Red Blood Count 2.56 MC/CUMM (3.8-5.5); Red Cell Distribution Width 14.6 % (9.3-17.3); White Blood Count 5.4 T/CUMM (4-12)
[2020-10-14 05:26] LABS: Osmolality,Calculated 281.2 MOS/KG (273-304); Potassium 3.8 MMOL/L (3.5-5.1)
[2020-10-14 05:27] LABS: Calcium 5.7 MG/DL (8.5-10.1)
[2020-10-14 05:30] LABS: Band Neutrophils 2 % (0-10); Eosinophils 5 % (0-10); Lymphocytes 29 % (20-55); Segmented Neutrophils 53 % (50-85); Total Cells Counted 100
[2020-10-14 05:31] LABS: Hypochromasia 1+; Microcytosis 1+
[2020-10-14 05:32] LABS: Platelet Estimate Normal
[2020-10-14] MEDS: LEVOTHYROXINE 112 MCG TABLET PO SCH (05:39)
[2020-10-14] MEDS: SODIUM CHLORIDE 0.45% 1,000 ML IV SCH (07:31)
[2020-10-14] MEDS ORDERED: ALBUMIN 5% 12.5 GM/250 ML VIAL IV ONE (07:47)
[2020-10-14 09:12] LABS: % Iron Saturation 9.7 % (18-50)
[2020-10-14] MEDS ORDERED: SODIUM CHLORIDE 0.9% 1,000 ML IV PRN (09:16)
[2020-10-14 09:17] LABS: Folate 8.51 NG/ML (5.38-24.0); Vitamin B12 > 2000 PG/ML (211-911)
[2020-10-14] MEDS: MIDODRINE 5 MG TABLET PO SCH ×3 (09:18→20:07)
[2020-10-14 09:37] LABS: Immuno Free Light Chain Kappa 14.37 MG/DL (0.33-1.94); Immuno Free Light Chain Lambda 10.03 MG/DL (0.57-2.63); Immuno Free Light Chain Ratio 1.43 MG/DL (0.26-1.65)
[2020-10-14 10:38] LABS: Total Protein (Chem) 5.9 G/DL (6.4-8.3)
[2020-10-14] MEDS ORDERED: propofoL 200 MG/20 ML VIAL IV ONE (11:20)
[2020-10-14] MEDS ORDERED: ePHEDrine 50 MG/ML VIAL ONE (11:20)
[2020-10-14] MEDS ORDERED: LIDOCAINE 2% 5 ML VIAL ONE (11:20)
[2020-10-14] MEDS ORDERED: MIDAZOLAM 2 MG/2 ML VIAL ONE (11:20)
[2020-10-14 11:51] LABS: Albumin (SPE) 3.2 G/DL (3.2-5.3); Albumin (SPE) Rel % 53.9 %; Alpha 1 (SPE) 0.3 G/DL (0.1-0.4); Alpha 1 (SPE) Rel % 4.9 %; Alpha 2 (SPE) 0.6 G/DL (0.4-1.0); Alpha 2 (SPE) Rel % 10.5 %; Beta (SPE) 0.4 G/DL (0.5-1.1); Beta (SPE) Rel % 7.3 %; Gamma (SPE) Rel % 23.4 %
[2020-10-14 11:57] LABS: Gamma (SPE) 1.4 G/DL (0.7-1.7)
[2020-10-14] MEDS: ASPIRIN CHEW 81 MG TABLET PO SCH (13:11)
[2020-10-14] MEDS: CALCIUM (CARBONATE) 500 MG TABLET PO SCH ×2 (13:11→20:07)
[2020-10-14] MEDS: GABAPENTIN 100 MG CAPSULE PO SCH ×2 (13:12→20:07)
[2020-10-14] MEDS: MULTIVITAMIN (CENTRUM) TABLET PO SCH (13:12)
[2020-10-14 13:23] LABS: Bilirubin,Urine Negative (Negative); Blood, Urine Small mg/dL (Negative); Glucose,Urine (UA) Negative (Negative); Hyaline Casts,Urine 53 /LPF (0-3); Ketones,Urine Negative (Negative); Mucus,Urine Occasional /LPF (Occasional); Nitrite,Urine Negative (Negative); Protein,Urine 100 MG/DL; RBC,Urine 3 /HPF (0-4); Squamous Epithelial Cell,Urine Occasional /HPF (0-10); Urine Appearance CLOUDY (Clear); Urine Color Amber (Yellow); Urine Specific Gravity 1.015 (1.001-1.035)
[2020-10-15 02:13] LABS: Basophils # 0.1 10*3/uL (0.0-0.2); Basophils % 1.8 % (0.0-0.8); Eosinophils # 0.2 10*3/uL (0.0-0.87); Eosinophils % 3.4 % (0.00-10.9); Immature Granulocytes % 0.5 %; Immature Granulocytes Absolute 0.03 #; Lymphocytes # 1.4 10*3/uL (1.4-4.0); Lymphocytes % 22.2 % (21.2-54.2); Mean Corpuscular HGB Conc 33.1 GM/DL (32-36); Mean Corpuscular Volume 90.1 FL (87-102); Mean Platelet Volume 10.3 FL (9.6-12.0); Monocytes % 12.5 % (1.7-12.7); Neutrophils % 59.6 % (38.7-73.9); Platelet Count 191 T/CUMM (130-400); Red Cell Distribution Width 14.8 % (9.3-17.3); White Blood Count 6.3 T/CUMM (4-12)
[2020-10-15 02:16] LABS: Hemoglobin 10.6 GM/DL (14.0-18.0); Red Blood Count 3.55 MC/CUMM (3.8-5.5)
[2020-10-15] MEDS: HEPARIN 5,000 UNIT/1 ML VIAL SUBCUT SCH ×3 (02:19→21:30)
[2020-10-15 02:43] LABS: Alanine Aminotransferase < 9 U/L (16-61); Albumin 2.6 G/DL (3.4-5.0); Alkaline Phosphatase 70 U/L (45-117); Aspartate Amino Transferase 16 U/L (0-37); Blood Urea Nitrogen 61 MG/DL (7-18); Carbon Dioxide 21 MMOL/L (21-32); Estimated Glom Filtration Rate 20 ML/MIN; Glucose 90 MG/DL (74-106); Osmolality,Calculated 286.1 MOS/KG (273-304); Potassium 4.4 MMOL/L (3.5-5.1); Potassium 4.5 MMOL/L (3.5-5.1); Sodium 135 MMOL/L (136-145); Total Protein 6.2 G/DL (6.4-8.2)
[2020-10-15 02:56] LABS: Calcium 5.7 MG/DL (8.5-10.1)
[2020-10-15] MEDS: LEVOTHYROXINE 112 MCG TABLET PO SCH (06:09)
[2020-10-15 08:41] LABS: Immunoglobulin A 83 MG/DL (70-400); Immunoglobulin G 1680 MG/DL (700-1600); Immunoglobulin M 50 MG/DL (40-230)
[2020-10-15] MEDS ORDERED: CALCIUM GLUCONATE 2,000 MG in SODIUM CHLORIDE 0.9% 100 ML IV ONE (08:42)
[2020-10-15] MEDS: CALCIUM (CARBONATE) 500 MG TABLET PO SCH ×2 (08:46→21:30)
[2020-10-15] MEDS: GABAPENTIN 100 MG CAPSULE PO SCH ×2 (08:47→21:29)
[2020-10-15] MEDS: MIDODRINE 5 MG TABLET PO SCH ×3 (08:47→21:34)
[2020-10-15] MEDS: MULTIVITAMIN (CENTRUM) TABLET PO SCH (08:47)
[2020-10-15] MEDS: ASPIRIN CHEW 81 MG TABLET PO SCH (08:47)
[2020-10-15] MEDS ORDERED: FERROUS SULFATE 325 MG TABLET PO SCH (09:00)
[2020-10-15] MEDS: SODIUM CHLORIDE 0.45% 1,000 ML IV SCH (09:35)
[2020-10-15] MEDS: cefTRIAXone 1,000 MG in SODIUM CHLORIDE 0.9% 100 ML IV SCH (09:54)
[2020-10-15] MEDS: DEXTROSE 50% 25 GM/50 ML VIAL IV PRN (12:27)
[2020-10-16] MEDS: LEVOTHYROXINE 112 MCG TABLET PO SCH (05:54)
[2020-10-16 08:11] LABS: Calcium 6.3 MG/DL (8.5-10.1); Osmolality,Calculated 285.1 MOS/KG (273-304); Potassium 4.6 MMOL/L (3.5-5.1)
[2020-10-16] MEDS: cefTRIAXone 1,000 MG in SODIUM CHLORIDE 0.9% 100 ML IV SCH (09:30)
[2020-10-16] MEDS: FERROUS SULFATE 325 MG TABLET PO SCH ×2 (09:34→22:14)
[2020-10-16] MEDS: CALCIUM (CARBONATE) 500 MG TABLET PO SCH ×2 (09:34→22:15)
[2020-10-16] MEDS: GABAPENTIN 100 MG CAPSULE PO SCH ×2 (09:34→22:15)
[2020-10-16] MEDS: ASPIRIN CHEW 81 MG TABLET PO SCH (09:34)
[2020-10-16] MEDS: MULTIVITAMIN (CENTRUM) TABLET PO SCH (09:34)
[2020-10-16] MEDS: HEPARIN 5,000 UNIT/1 ML VIAL SUBCUT SCH ×3 (09:35→22:37)
[2020-10-16] MEDS: MIDODRINE 5 MG TABLET PO SCH ×3 (09:35→22:15)
[2020-10-16] MEDS ORDERED: FUROSEMIDE 40 MG/4 ML VIAL IV ONE (11:53)
[2020-10-16] MEDS ORDERED: LEVOFLOXACIN INJ 500 MG/100 ML PREMIX IV ONE (13:00)
[2020-10-16] MEDS: ALBUMIN 25% 12.5 GM/50 ML VIAL IV SCH ×2 (14:16→22:11)
[2020-10-16] MEDS: SODIUM CHLORIDE 0.45% 1,000 ML IV SCH ×2 (15:54)
[2020-10-16] MEDS: FUROSEMIDE 80 MG TABLET PO SCH (16:41)
[2020-10-17 05:20] LABS: Basophils # 0.1 10*3/uL (0.0-0.2); Basophils % 2.1 % (0.0-0.8); Eosinophils # 0.3 10*3/uL (0.0-0.87); Eosinophils % 6.1 % (0.00-10.9); Hematocrit 29.5 VOL% (42.0-52.0); Hemoglobin 9.8 GM/DL (14.0-18.0); Immature Granulocytes % 0.2 %; Immature Granulocytes Absolute 0.01 #; Lymphocytes # 1.2 10*3/uL (1.4-4.0); Lymphocytes % 24.8 % (21.2-54.2); Mean Corpuscular HGB Conc 33.2 GM/DL (32-36); Mean Corpuscular Volume 86.5 FL (87-102); Mean Platelet Volume 10.7 FL (9.6-12.0); Monocytes % 14.8 % (1.7-12.7); Platelet Count 160 T/CUMM (130-400); Red Blood Count 3.41 MC/CUMM (3.8-5.5); Red Cell Distribution Width 14.9 % (9.3-17.3); White Blood Count 4.8 T/CUMM (4-12)
[2020-10-17] MEDS: LEVOTHYROXINE 112 MCG TABLET PO SCH (05:48)
[2020-10-17 05:50] LABS: Calcium 6.7 MG/DL (8.5-10.1); Osmolality,Calculated 285.1 MOS/KG (273-304); Potassium 4.7 MMOL/L (3.5-5.1)
[2020-10-17] MEDS: ALBUMIN 25% 12.5 GM/50 ML VIAL IV SCH (05:50)
[2020-10-17] MEDS: MULTIVITAMIN (CENTRUM) TABLET PO SCH (09:04)
[2020-10-17] MEDS: ASPIRIN CHEW 81 MG TABLET PO SCH (09:04)
[2020-10-17] MEDS: GABAPENTIN 100 MG CAPSULE PO SCH ×2 (09:04→21:28)
[2020-10-17] MEDS: CALCIUM (CARBONATE) 500 MG TABLET PO SCH ×2 (09:05→18:55)
[2020-10-17] MEDS: FERROUS SULFATE 325 MG TABLET PO SCH ×2 (09:05→21:28)
[2020-10-17] MEDS: FUROSEMIDE 80 MG TABLET PO SCH ×2 (09:05→16:19)
[2020-10-17] MEDS: HEPARIN 5,000 UNIT/1 ML VIAL SUBCUT SCH ×2 (09:17→21:28)
[2020-10-17] MEDS: FERRIC GLUCONATE COMPLEX 125 MG in SODIUM CHLORIDE 0.9% 100 ML IV SCH (10:56)
[2020-10-17] MEDS: MIDODRINE 5 MG TABLET PO SCH ×3 (10:56→21:28)
[2020-10-17] MEDS: SODIUM CHLORIDE 0.45% 1,000 ML IV SCH (18:59)
[2020-10-18] MEDS: LEVOTHYROXINE 112 MCG TABLET PO SCH (05:54)
[2020-10-18 05:55] LABS: Calcium 6.9 MG/DL (8.5-10.1); Osmolality,Calculated 287.8 MOS/KG (273-304); Potassium 4.4 MMOL/L (3.5-5.1)
[2020-10-18] MEDS: MULTIVITAMIN (CENTRUM) TABLET PO SCH (09:07)
[2020-10-18] MEDS: FERROUS SULFATE 325 MG TABLET PO SCH ×2 (09:07→20:32)
[2020-10-18] MEDS: CALCIUM (CARBONATE) 500 MG TABLET PO SCH ×2 (09:07→16:25)
[2020-10-18] MEDS: ASPIRIN CHEW 81 MG TABLET PO SCH (09:07)
[2020-10-18] MEDS: GABAPENTIN 100 MG CAPSULE PO SCH ×2 (09:07→20:31)
[2020-10-18] MEDS: MIDODRINE 5 MG TABLET PO SCH ×3 (09:08→20:32)
[2020-10-18] MEDS: HEPARIN 5,000 UNIT/1 ML VIAL SUBCUT SCH ×2 (09:08→20:36)
[2020-10-18] MEDS: FUROSEMIDE 80 MG TABLET PO SCH ×2 (09:10→16:25)
[2020-10-18] MEDS: FERRIC GLUCONATE COMPLEX 125 MG in SODIUM CHLORIDE 0.9% 100 ML IV SCH (09:10)
[2020-10-18] MEDS: LEVOFLOXACIN INJ 250 MG/50 ML PREMIX IV SCH (12:12)
[2020-10-19 04:37] LABS: Basophils # 0.1 10*3/uL (0.0-0.2); Basophils % 2.3 % (0.0-0.8); Eosinophils # 0.3 10*3/uL (0.0-0.87); Eosinophils % 5.7 % (0.00-10.9); Hematocrit 29.5 VOL% (42.0-52.0); Hemoglobin 9.9 GM/DL (14.0-18.0); Immature Granulocytes % 0.4 %; Immature Granulocytes Absolute 0.02 #; Lymphocytes # 1.5 10*3/uL (1.4-4.0); Lymphocytes % 26.5 % (21.2-54.2); Mean Corpuscular HGB Conc 33.6 GM/DL (32-36); Mean Corpuscular Volume 87.8 FL (87-102); Mean Platelet Volume 10.6 FL (9.6-12.0); Monocytes % 16.8 % (1.7-12.7); Neutrophils % 48.3 % (38.7-73.9); Platelet Count 116 T/CUMM (130-400); Red Blood Count 3.36 MC/CUMM (3.8-5.5); Red Cell Distribution Width 15.3 % (9.3-17.3); White Blood Count 5.6 T/CUMM (4-12)
[2020-10-19 05:12] LABS: Alanine Aminotransferase < 6 U/L (16-61); Albumin 2.8 G/DL (3.4-5.0); Alkaline Phosphatase 70 U/L (45-117); Aspartate Amino Transferase 18 U/L (0-37); Bilirubin,Indirect 0.7 MG/DL (0.0-1.0); Blood Urea Nitrogen 62 MG/DL (7-18); Calcium 7.2 MG/DL (8.5-10.1); Carbon Dioxide 23 MMOL/L (21-32); Estimated Glom Filtration Rate 20 ML/MIN; Glucose 80 MG/DL (74-106); Osmolality,Calculated 289.8 MOS/KG (273-304); Potassium 4.5 MMOL/L (3.5-5.1); Sodium 137 MMOL/L (136-145); Total Protein 6.4 G/DL (6.4-8.2)
[2020-10-19] MEDS: LEVOTHYROXINE 112 MCG TABLET PO SCH (05:37)
[2020-10-19 06:46] LABS: Anisocytosis 1+; Eosinophils 7 % (0-10); Lymphocytes 22 % (20-55); Platelet Estimate Adequate; Segmented Neutrophils 54 % (50-85); Total Cells Counted 100
[2020-10-19] MEDS: MULTIVITAMIN (CENTRUM) TABLET PO SCH (08:03)
[2020-10-19] MEDS: GABAPENTIN 100 MG CAPSULE PO SCH ×2 (08:03→20:47)
[2020-10-19] MEDS: FERROUS SULFATE 325 MG TABLET PO SCH ×2 (08:03→20:47)
[2020-10-19] MEDS: FUROSEMIDE 80 MG TABLET PO SCH ×2 (08:03→16:39)
[2020-10-19] MEDS: ASPIRIN CHEW 81 MG TABLET PO SCH (08:03)
[2020-10-19] MEDS: CALCIUM (CARBONATE) 500 MG TABLET PO SCH ×2 (08:03→16:39)
[2020-10-19] MEDS: MIDODRINE 5 MG TABLET PO SCH ×3 (08:08→20:48)
[2020-10-19] MEDS: HEPARIN 5,000 UNIT/1 ML VIAL SUBCUT SCH ×2 (08:09→20:48)
[2020-10-19] MEDS: FERRIC GLUCONATE COMPLEX 125 MG in SODIUM CHLORIDE 0.9% 100 ML IV SCH (09:04)
[2020-10-20 05:41] LABS: Basophils # 0.1 10*3/uL (0.0-0.2); Basophils % 1.8 % (0.0-0.8); Eosinophils # 0.3 10*3/uL (0.0-0.87); Eosinophils % 4.7 % (0.00-10.9); Hematocrit 29.6 VOL% (42.0-52.0); Hemoglobin 9.9 GM/DL (14.0-18.0); Immature Granulocytes % 0.4 %; Immature Granulocytes Absolute 0.02 #; Lymphocytes # 1.3 10*3/uL (1.4-4.0); Lymphocytes % 23.5 % (21.2-54.2); Mean Corpuscular HGB Conc 33.4 GM/DL (32-36); Mean Corpuscular Volume 87.3 FL (87-102); Mean Platelet Volume 11.4 FL (9.6-12.0); Monocytes % 15.3 % (1.7-12.7); Neutrophils % 54.3 % (38.7-73.9); Platelet Count 110 T/CUMM (130-400); Red Blood Count 3.39 MC/CUMM (3.8-5.5); Red Cell Distribution Width 15.5 % (9.3-17.3); White Blood Count 5.5 T/CUMM (4-12)
[2020-10-20] MEDS: LEVOTHYROXINE 112 MCG TABLET PO SCH (05:47)
[2020-10-20 06:04] LABS: Hypochromasia 1+; Platelet Estimate Decreased
[2020-10-20 06:05] LABS: Calcium 7.1 MG/DL (8.5-10.1); Osmolality,Calculated 291.7 MOS/KG (273-304); Potassium 4.2 MMOL/L (3.5-5.1)
[2020-10-20] MEDS: MIDODRINE 5 MG TABLET PO SCH ×3 (09:29→21:19)
[2020-10-20] MEDS: FERROUS SULFATE 325 MG TABLET PO SCH ×2 (09:29→21:19)
[2020-10-20] MEDS: FUROSEMIDE 80 MG TABLET PO SCH ×2 (09:29→15:40)
[2020-10-20] MEDS: ASPIRIN CHEW 81 MG TABLET PO SCH (09:29)
[2020-10-20] MEDS: GABAPENTIN 100 MG CAPSULE PO SCH ×2 (09:30→21:19)
[2020-10-20] MEDS: FERRIC GLUCONATE COMPLEX 125 MG in SODIUM CHLORIDE 0.9% 100 ML IV SCH (09:30)
[2020-10-20] MEDS: MULTIVITAMIN (CENTRUM) TABLET PO SCH (09:30)
[2020-10-20] MEDS: CALCIUM (CARBONATE) 500 MG TABLET PO SCH ×2 (09:30→16:08)
[2020-10-20] MEDS: HEPARIN 5,000 UNIT/1 ML VIAL SUBCUT SCH ×2 (09:30→21:19)
[2020-10-20] MEDS: LEVOFLOXACIN INJ 250 MG/50 ML PREMIX IV SCH (15:40)
[2020-10-20] MEDS: ONDANSETRON 4 MG/2 ML VIAL IV PRN (21:20)
[2020-10-20] MEDS ORDERED: METOPROLOL TARTRATE 5 MG/5 ML VIAL IV ONE (23:04)
[2020-10-21] MEDS ORDERED: SODIUM CHLORIDE 0.9% 250 ML IV ONE ×3 (03:01→04:56)
[2020-10-21] MEDS ORDERED: ADENOSINE 6 MG/2 ML VIAL IV ONE (04:07)
[2020-10-21] MEDS ORDERED: ADENOSINE 6 MG/2 ML VIAL ONE (04:08)
[2020-10-21 06:08] LABS: Calcium 7.2 MG/DL (8.5-10.1); Potassium 4.7 MMOL/L (3.5-5.1)
[2020-10-21 06:54] LABS: Basophils # 0.2 10*3/uL (0.0-0.2); Basophils % 2.3 % (0.0-0.8); Eosinophils # 0.2 10*3/uL (0.0-0.87); Eosinophils % 3.5 % (0.00-10.9); Hemoglobin 10.3 GM/DL (14.0-18.0); Immature Granulocytes % 0.2 %; Immature Granulocytes Absolute 0.01 #; Lymphocytes # 2.1 10*3/uL (1.4-4.0); Lymphocytes % 31.7 % (21.2-54.2); Mean Corpuscular HGB Conc 32.2 GM/DL (32-36); Mean Corpuscular Volume 89.6 FL (87-102); Mean Platelet Volume 11.1 FL (9.6-12.0); Monocytes % 18.9 % (1.7-12.7); Neutrophils % 43.4 % (38.7-73.9); Platelet Count 104 T/CUMM (130-400); Red Blood Count 3.57 MC/CUMM (3.8-5.5); Red Cell Distribution Width 15.7 % (9.3-17.3); White Blood Count 6.6 T/CUMM (4-12)
[2020-10-21 07:11] LABS: Eosinophils 4 % (0-10); Lymphocytes 35 % (20-55); Platelet Estimate Decreased; Segmented Neutrophils 49 % (50-85); Total Cells Counted 100
[2020-10-21 07:12] LABS: Hypochromasia 1+; Microcytosis 1+
[2020-10-21] MEDS ORDERED: AMIODARONE INJ 450 MG in DEXTROSE 5% 241 ML IV SCH (08:00)
[2020-10-21] MEDS: MULTIVITAMIN (CENTRUM) TABLET PO SCH (09:03)
[2020-10-21] MEDS: ASPIRIN CHEW 81 MG TABLET PO SCH (09:03)
[2020-10-21] MEDS: GABAPENTIN 100 MG CAPSULE PO SCH ×2 (09:03→21:59)
[2020-10-21] MEDS: FERROUS SULFATE 325 MG TABLET PO SCH ×2 (09:03→21:58)
[2020-10-21] MEDS: LEVOTHYROXINE 112 MCG TABLET PO SCH (09:05)
[2020-10-21] MEDS: MIDODRINE 5 MG TABLET PO SCH ×3 (09:05→22:05)
[2020-10-21] MEDS: FUROSEMIDE 80 MG TABLET PO SCH ×2 (09:05→15:58)
[2020-10-21] MEDS: CALCIUM (CARBONATE) 500 MG TABLET PO SCH ×2 (09:06→16:17)
[2020-10-21] MEDS: HEPARIN 5,000 UNIT/1 ML VIAL SUBCUT SCH ×2 (09:06→21:58)
[2020-10-21] MEDS: FERRIC GLUCONATE COMPLEX 125 MG in SODIUM CHLORIDE 0.9% 100 ML IV SCH (09:12)
[2020-10-21] MEDS ORDERED: LEVOFLOXACIN 250 MG TABLET PO SCH (12:00)
[2020-10-21] MEDS: AMIODARONE INJ 450 MG in DEXTROSE 5% 241 ML IV SCH (15:48)
[2020-10-22] MEDS: LEVOTHYROXINE 112 MCG TABLET PO SCH (05:53)
[2020-10-22] MEDS: AMIODARONE INJ 450 MG in DEXTROSE 5% 241 ML IV SCH ×2 (07:04→18:22)
[2020-10-22 07:53] LABS: ABG Base Excess -2.3 MMOL/L (-2.5-2.5); ABG Oxygen Saturation 61.8 % (95-100); ABG PCO2 44.9 MM HG (35-48)
[2020-10-22 07:56] LABS: ABG PO2 37.7 MM HG (80-95)
[2020-10-22 08:08] LABS: Basophils # 0.1 10*3/uL (0.0-0.2); Basophils % 2.1 % (0.0-0.8); Eosinophils % 0.8 % (0.00-10.9); Hematocrit 31.1 VOL% (42.0-52.0); Hemoglobin 9.9 GM/DL (14.0-18.0); Immature Granulocytes % 0.4 %; Immature Granulocytes Absolute 0.02 #; Lymphocytes # 1.1 10*3/uL (1.4-4.0); Lymphocytes % 23.5 % (21.2-54.2); Mean Corpuscular HGB Conc 31.8 GM/DL (32-36); Mean Corpuscular Volume 90.7 FL (87-102); Mean Platelet Volume 11.1 FL (9.6-12.0); Monocytes % 18.8 % (1.7-12.7); Neutrophils % 54.4 % (38.7-73.9); Platelet Count 106 T/CUMM (130-400); Red Blood Count 3.43 MC/CUMM (3.8-5.5); White Blood Count 4.8 T/CUMM (4-12)
[2020-10-22 08:27] LABS: Eosinophils 3 % (0-10); Lymphocytes 18 % (20-55); Platelet Estimate Decreased; Segmented Neutrophils 68 % (50-85); Total Cells Counted 100
[2020-10-22 08:28] LABS: Hypochromasia Slight; Microcytosis Slight
[2020-10-22 08:35] LABS: Calcium 7.5 MG/DL (8.5-10.1); Osmolality,Calculated 288.8 MOS/KG (273-304); Potassium 4.9 MMOL/L (3.5-5.1)
[2020-10-22] MEDS ORDERED: ALBUMIN 25% 25 GM/100 ML VIAL IV ONE (09:00)
[2020-10-22] MEDS: GABAPENTIN 100 MG CAPSULE PO SCH ×2 (09:14→21:58)
[2020-10-22] MEDS: carvediloL 3.125 MG TABLET PO SCH ×2 (09:14→21:50)
[2020-10-22] MEDS: FERROUS SULFATE 325 MG TABLET PO SCH ×2 (09:14→21:57)
[2020-10-22] MEDS: ASPIRIN CHEW 81 MG TABLET PO SCH (09:14)
[2020-10-22] MEDS: CALCIUM (CARBONATE) 500 MG TABLET PO SCH ×2 (09:14→16:39)
[2020-10-22] MEDS: MIDODRINE 5 MG TABLET PO SCH ×3 (09:14→21:58)
[2020-10-22] MEDS: FERRIC GLUCONATE COMPLEX 125 MG in SODIUM CHLORIDE 0.9% 100 ML IV SCH (09:15)
[2020-10-22] MEDS: HEPARIN 5,000 UNIT/1 ML VIAL SUBCUT SCH ×2 (09:20→22:27)
[2020-10-22] MEDS: AMIODARONE 200 MG TABLET PO SCH ×2 (09:20→21:57)
[2020-10-22] MEDS: MULTIVITAMIN (CENTRUM) TABLET PO SCH (09:20)
[2020-10-22] MEDS: DOCUSATE SODIUM 100 MG CAPSULE PO SCH (10:04)
[2020-10-22] MEDS: POLYETHYLENE GLYCOL POWDER 17 GM PACK PO SCH (10:04)
[2020-10-22] MEDS: ONDANSETRON 4 MG/2 ML VIAL IV PRN ×2 (11:44→19:25)
[2020-10-22] MEDS: FUROSEMIDE 80 MG TABLET PO SCH ×2 (12:22→16:39)
[2020-10-22] MEDS ORDERED: LORazepam 2 MG/1 ML VIAL IV ONE (12:23)
[2020-10-22] MEDS ORDERED: SCOPOLAMINE 1.5 MG PATCH TRANSDERM ONE (14:02)
[2020-10-22 17:17] VITALS: BP 114/74
[2020-10-22] MEDS ORDERED: SODIUM PHOSPHATE ENEMA 133 ML BOTTLE RECTAL ONE (18:22)
[2020-10-22] MEDS ORDERED: LORazepam 2 MG/1 ML VIAL IV PRN (19:45)
[2020-10-22] MEDS ORDERED: ROSUVASTATIN 10 MG TABLET PO SCH (21:00)
[2020-10-22] MEDS ORDERED: PHENYLEPHRINE DRIP 40 MG/250 ML PREMIX IV ONE (21:22)
[2020-10-22] MEDS ORDERED: NOREPINEPHRINE 4 MG/4 ML VIAL IV ONE ×2 (21:37→21:38)
[2020-10-22] MEDS ORDERED: NOREPINEPHRINE 8 MG in SODIUM CHLORIDE 0.9% 242 ML IV PRN (21:40)
[2020-10-22] MEDS: PHENYLEPHRINE DRIP 40 MG/250 ML PREMIX IV PRN ×2 (21:45→23:25)
[2020-10-22 22:06] LABS: ABG Base Excess -5.7 MMOL/L (-2.5-2.5); ABG HCO3 21.4 MMOL/L (20-26); ABG PCO2 50.3 MM HG (35-48); ABG PH 7.247 (7.35-7.45); ABG PO2 150.9 MM HG (80-95)
[2020-10-22 22:20] LABS: Calcium 6.8 MG/DL (8.5-10.1); Osmolality,Calculated 292.5 MOS/KG (273-304); Potassium 4.5 MMOL/L (3.5-5.1)
[2020-10-22] MEDS: PIPERACILLIN/TAZOBACTAM 3,375 MG in SODIUM CHLORIDE 0.9% 100 ML IV SCH (23:29)
[2020-10-22 23:33] LABS: ABG Base Excess -5.8 MMOL/L (-2.5-2.5); ABG HCO3 19.6 MMOL/L (20-26); ABG Oxygen Saturation 96.1 % (95-100); ABG PCO2 42.5 MM HG (35-48); ABG PH 7.291 (7.35-7.45); ABG PO2 91.3 MM HG (80-95)
[2020-10-23] MEDS: PHENYLEPHRINE DRIP 40 MG/250 ML PREMIX IV PRN (01:33)
[2020-10-23] MEDS: NOREPINEPHRINE 16 MG in SODIUM CHLORIDE 0.9% 234 ML IV PRN ×6 (03:30→23:30)
[2020-10-23] MEDS: PHENYLEPHRINE INJ 160 MG in SODIUM CHLORIDE 0.9% 234 ML IV PRN ×3 (03:50→18:10)
[2020-10-23 04:36] LABS: ABG Base Excess -5.6 MMOL/L (-2.5-2.5); ABG HCO3 20.9 MMOL/L (20-26); ABG Oxygen Saturation 98.5 % (95-100); ABG PCO2 45.1 MM HG (35-48); ABG PH 7.283 (7.35-7.45); ABG TCO2 22.2 MMOL/L (23-27)
[2020-10-23] MEDS: AMIODARONE INJ 450 MG in DEXTROSE 5% 241 ML IV SCH ×2 (05:54→21:00)
[2020-10-23] MEDS: LEVOTHYROXINE 125 MCG TABLET PO SCH (05:55)
[2020-10-23 06:11] LABS: Calcium 6.8 MG/DL (8.5-10.1); Osmolality,Calculated 295.3 MOS/KG (273-304); Potassium 4.4 MMOL/L (3.5-5.1)
[2020-10-23] MEDS ORDERED: DIGOXIN 0.5 MG/2 ML AMP IV ONE ×2 (07:41→08:15)
[2020-10-23] MEDS ORDERED: NOREPINEPHRINE 4 MG/4 ML VIAL IV ONE (07:45)
[2020-10-23] MEDS: DEXTROSE 50% 25 GM/50 ML VIAL IV PRN ×3 (08:20→20:45)
[2020-10-23] MEDS: CALCIUM (CARBONATE) 500 MG TABLET PO SCH ×2 (08:31→16:47)
[2020-10-23] MEDS ORDERED: SODIUM CHLORIDE 0.9% 1,000 ML IV SCH (10:00)
[2020-10-23] MEDS ORDERED: SODIUM CHLORIDE 0.9% 1,000 ML IV ONE (10:00)
[2020-10-23] MEDS: PANTOPRAZOLE 40 MG VIAL IV SCH ×2 (10:05→20:51)
[2020-10-23] MEDS: HEPARIN 5,000 UNIT/1 ML VIAL SUBCUT SCH ×2 (10:05→20:47)
[2020-10-23] MEDS: PIPERACILLIN/TAZOBACTAM 3,375 MG in SODIUM CHLORIDE 0.9% 100 ML IV SCH (10:16)
[2020-10-23] MEDS: metroNIDAZOLE INJ 500 MG/100 ML PREMIX IV SCH ×2 (10:23→18:27)
[2020-10-23] MEDS: MEROPENEM 500 MG in SODIUM CHLORIDE 0.9% 100 ML IV SCH (10:27)
[2020-10-23] MEDS: FUROSEMIDE 80 MG TABLET PO SCH ×2 (10:32→15:00)
[2020-10-23] MEDS: MULTIVITAMIN (CENTRUM) TABLET PO SCH (10:33)
[2020-10-23] MEDS: AMIODARONE 200 MG TABLET PO SCH (10:33)
[2020-10-23] MEDS: DOCUSATE SODIUM 100 MG CAPSULE PO SCH (10:33)
[2020-10-23] MEDS: carvediloL 3.125 MG TABLET PO SCH (10:33)
[2020-10-23] MEDS: FERROUS SULFATE 325 MG TABLET PO SCH ×2 (10:33→21:00)
[2020-10-23] MEDS: ASPIRIN CHEW 81 MG TABLET PO SCH (10:33)
[2020-10-23] MEDS: GABAPENTIN 100 MG CAPSULE PO SCH ×2 (10:34→21:01)
[2020-10-23] MEDS: POLYETHYLENE GLYCOL POWDER 17 GM PACK PO SCH (10:34)
[2020-10-23] MEDS: MIDODRINE 5 MG TABLET PO SCH ×3 (10:34→21:01)
[2020-10-23] MEDS: FERRIC GLUCONATE COMPLEX 125 MG in SODIUM CHLORIDE 0.9% 100 ML IV SCH (11:54)
[2020-10-24] MEDS: DEXTROSE 5% 1,000 ML IV SCH ×3 (00:30→22:19)
[2020-10-24] MEDS: metroNIDAZOLE INJ 500 MG/100 ML PREMIX IV SCH ×3 (02:50→17:57)
[2020-10-24] MEDS: NOREPINEPHRINE 16 MG in SODIUM CHLORIDE 0.9% 234 ML IV PRN ×2 (04:16→08:52)
[2020-10-24 05:46] LABS: ABG Base Excess -6.5 MMOL/L (-2.5-2.5); ABG HCO3 19.1 MMOL/L (20-26); ABG Oxygen Saturation 98.2 % (95-100); ABG PH 7.296 (7.35-7.45); ABG TCO2 18.4 MMOL/L (23-27)
[2020-10-24] MEDS: LEVOTHYROXINE 125 MCG TABLET PO SCH (06:14)
[2020-10-24] MEDS: DEXTROSE 50% 25 GM/50 ML VIAL IV PRN (07:51)
[2020-10-24] MEDS: FUROSEMIDE 80 MG TABLET PO SCH (08:35)
[2020-10-24] MEDS: FERRIC GLUCONATE COMPLEX 125 MG in SODIUM CHLORIDE 0.9% 100 ML IV SCH (09:15)
[2020-10-24] MEDS: ALBUMIN 25% 12.5 GM/50 ML VIAL IV SCH ×2 (09:19→21:30)
[2020-10-24] MEDS: CALCIUM (CARBONATE) 500 MG TABLET PO SCH ×2 (09:19→17:31)
[2020-10-24] MEDS: MULTIVITAMIN (CENTRUM) TABLET PO SCH (09:21)
[2020-10-24] MEDS: GABAPENTIN 100 MG CAPSULE PO SCH ×2 (09:21→21:34)
[2020-10-24] MEDS: FERROUS SULFATE 325 MG TABLET PO SCH ×2 (09:21→21:34)
[2020-10-24] MEDS: MIDODRINE 5 MG TABLET PO SCH ×3 (09:22→21:34)
[2020-10-24] MEDS: HEPARIN 5,000 UNIT/1 ML VIAL SUBCUT SCH ×2 (09:22→21:31)
[2020-10-24] MEDS: MEROPENEM 500 MG in SODIUM CHLORIDE 0.9% 100 ML IV SCH (09:23)
[2020-10-24] MEDS: PANTOPRAZOLE 40 MG VIAL IV SCH ×2 (09:25→21:35)
[2020-10-24] MEDS: HYDROCORTISONE 100 MG VIAL IV SCH ×3 (11:25→21:40)
[2020-10-24] MEDS: FUROSEMIDE 100 MG/10 ML VIAL IV SCH ×2 (11:30→21:20)
[2020-10-24] MEDS: NOREPINEPHRINE 32 MG in SODIUM CHLORIDE 0.9% 468 ML IV PRN (12:53)
[2020-10-24] MEDS: AMIODARONE INJ 450 MG in DEXTROSE 5% 241 ML IV SCH (13:32)
[2020-10-24] MEDS ORDERED: FUROSEMIDE 100 MG/10 ML VIAL IV SCH (16:00)
[2020-10-25] MEDS: NOREPINEPHRINE 32 MG in SODIUM CHLORIDE 0.9% 468 ML IV PRN (00:39)
[2020-10-25] MEDS ORDERED: ATROPINE 1 MG/10 ML SYRINGE ONE (01:56)
[2020-10-25] MEDS: HYDROCORTISONE 100 MG VIAL IV SCH ×3 (03:35→16:31)
[2020-10-25] MEDS: AMIODARONE INJ 450 MG in DEXTROSE 5% 241 ML IV SCH (03:35)
[2020-10-25] MEDS: metroNIDAZOLE INJ 500 MG/100 ML PREMIX IV SCH ×2 (03:38→09:21)
[2020-10-25 05:04] LABS: ABG Base Excess -8.7 MMOL/L (-2.5-2.5); ABG HCO3 17.3 MMOL/L (20-26); ABG Oxygen Saturation 97.7 % (95-100); ABG PCO2 39.6 MM HG (35-48); ABG TCO2 16.7 MMOL/L (23-27)
[2020-10-25 05:09] LABS: Calcium 6.3 MG/DL (8.5-10.1); Osmolality,Calculated 289.2 MOS/KG (273-304); Potassium 4.6 MMOL/L (3.5-5.1)
[2020-10-25] MEDS ORDERED: LEVOTHYROXINE 100 MCG VIAL IV SCH (07:00)
[2020-10-25] MEDS: FERROUS SULFATE 325 MG TABLET PO SCH (09:17)
[2020-10-25] MEDS: MULTIVITAMIN (CENTRUM) TABLET PO SCH (09:17)
[2020-10-25] MEDS: CALCIUM (CARBONATE) 500 MG TABLET PO SCH (09:17)
[2020-10-25] MEDS: MIDODRINE 5 MG TABLET PO SCH ×2 (09:17→16:31)
[2020-10-25] MEDS: GABAPENTIN 100 MG CAPSULE PO SCH (09:17)
[2020-10-25] MEDS: HEPARIN 5,000 UNIT/1 ML VIAL SUBCUT SCH (09:18)
[2020-10-25] MEDS: PANTOPRAZOLE 40 MG VIAL IV SCH (09:21)
[2020-10-25] MEDS: ALBUMIN 25% 12.5 GM/50 ML VIAL IV SCH (09:21)
[2020-10-25] MEDS: DEXTROSE 5% 1,000 ML IV SCH (09:40)
[2020-10-25] MEDS ORDERED: HEPARIN/NACL 0.9% 2 UNITS/ML 1,000 UNIT/500 ML BAG IV SCH (10:00)
[2020-10-25] MEDS: FUROSEMIDE 100 MG/10 ML VIAL IV SCH (10:00)
[2020-10-25] MEDS ORDERED: AMPICILLIN INJ 500 MG in SODIUM CHLORIDE 0.9% 100 ML IV SCH (11:00)
[2020-10-25] MEDS: MEROPENEM 500 MG in SODIUM CHLORIDE 0.9% 100 ML IV SCH (11:00)
[2020-10-25] MEDS ORDERED: MORPHINE 2 MG/1 ML SYRINGE IV PRN (11:01)
== END 2020-10-25 17:46 | disposition expired | DRG 823 ==
LOC: N.EDINP 09:51 → N.ED 09:51 → SUATTDRO 15:36 → N.EDINP 16:08 → N.TELEN 16:16 → SUATTDRO 10-11 11:36 → N.ICU 10-22 20:12
PROVIDERS: ADMIT Hospitalist; ATTEND Internal Medicine
PROC: IRTHORA (2020-10-13 14:29)